=== PATIENT | female | born 1980 | race Caucasian/White ===

== ENCOUNTER 2016-12-22 10:20 | Emergency (ER) | payer OTHER ==
[2016-12-22 10:28] VITALS: BP 117/73; BMI 31.6
--- NOTE | 2016-12-22 10:46 | DR.GENAD ---
HPI - PCP Primary Care Physician: KENYATTA HUNG - HPI Comment HPI Comment: WOKE UP 04: O0 AM TO GET READY FOR WORK, SHE PASSED OUT. AT 05:30 AM SHE WOKE UP NEXT TO HER BED. SHE HAD HEADACHE ALL LAST NIGHT WITH LT ARM PAIN WHICH IS WORSE NOW. DENIES CHEST PAIN. - Complaint/Symptoms Chief Complaint Doctors Comments: SYNCOPAL EPISODE, DIZZINESS. WEAK Chief Complaint:: patient stated she waoke up at 4 to got to work and she passed out by her bed and woke up at 530. she stated she has had a bad headache all night and her chest and arm has been hurting since last night. - Nurses notes reviewed Nurses Notes Review: Yes - Source History Provided: Patient - Mode of Arrival Mode of Arrival: Ambulatory - Timing Onset of Chief Complaint: 12/21/16 Came on: Suddenly - Duration Duration: Since Onset Duration: Hours - Severity Severity: Moderate PMH - PMH Past Medical History: Yes Past Medical History: Migraines Past Surgical History: Yes Surgical History: Cholecystectomy, Hysterectomy - Family History History of Family Medical Conditions: Yes Family Medical History: Diabetes Mellitus, Cancer - Social History Does patient currently use any type of tobacco product: No Have you used tobacco products in the last 12 months: No Type of Tobacco Use: None Does any household member use tobacco: Yes Alcohol Use: None Do you use any recreational Drugs:: No Lives With: Family Lives Where: Home - infectious screening In the last 2 months have you had wt loss of >10#?: NO Have you had fever, night sweats or hemotysis?: No Have you traveled outside the country in the last 6 months?: No Isolation: Standard ROS - Review of Systems Constitutional: No Symptoms Reported Eyes: No Symptoms Reported ENTM: No Symptoms Reported Respiratoy: No Symptoms Reported Cardiovascular: Syncope Gastrointestinal/Abdominal: No Symptoms Reported Genitourinary: No Symptoms Reported Neurological: No Symptoms Reported Musculoskeletal: No Symptoms Reported Integumentary: No Symptoms Reported Hematologic/Lymphatic: No Symptoms Reported All Other Systems: Reviewed and Negative PE - Vital Signs Vitals: Temperature 98.7 F Pulse Rate 94 Respiratory Rate 16 Blood Pressure [Left Arm] 110/64 Blood Pressure [Right Arm] 127/83 Blood Pressure 117/73 O2 Sat by Pulse Oximetry 100 - General Limitations: No Limitations General Appearance: Alert, In No Apparent Distress - Head Head Exam: Normal Inspection - Eyes Eye exam: Normal Appearance - ENT ENT Exam: Normal External Ear Exam External Ear Exam: Normal External Inspection TM/Canal Exam: Bilateral Normal Nose Exam: Normal Nose Exam Mouth Exam: Normal Inspection Throat Exam: Normal Inspection - Neck Neck Exam: Normal Inspection - Chest Chest Inspection: Symmetric Chest Wall Rise - Respiratory Respiratory Exam: Normal Lung Sounds Bilat Respiratory Exam: Bilateral Clear to Auscultation - Cardiovascular Cardiovascular Exam: Regular Rate, Normal Rhythm - Abdominal Exam Abdominal Exam: Normal Bowel Sounds - Extremities Extremities Exam: Normal Inspection - Back Back Exam: Normal Inspection - Neurologic Neurological Exam: Alert, Oriented X3, CN II-XII Intact, Normal Gait, Reflexes Normal. negative: Motor Sensory Deficit - Psychiatric Psychiatric Exam: Anxious - Skin Skin Exam: Normal Color MDM - Differential Diagnosis Differential Diagnosis: SYNCOPE, VERTIGO, CEREBRAL MASS, CVA, DIZZINESS Course - Treatment Treatment: SEE ORDERS - Education/Counseling Education/Counseling: Patient, Education Educated On: Diagnosis, Needs for Follow Up ROR - Labs Reviewed Laboratory Results Reviewed?: Yes Result Diagrams: 12/22/16 10:56 12/22/16 10:56 Laboratory: WBC 3.4 X10^3/uL (3.6-10.0) L 12/22/16 10:56 RBC 3.65 X10^6/uL (3.5-5.4) 12/22/16 10:56 Hgb 10.6 g/dL (12.0-16.0) L 12/22/16 10:56 Hct 31.6 % (36.0-47.0) L 12/22/16 10:56 MCV 86.6 fL (80.0-100.0) 12/22/16 10:56 MCH 29.1 pg (27.0-34.0) 12/22/16 10:56 MCHC 33.6 g/dL (33.0-35.0) 12/22/16 10:56 RDW 13.2 % (11.6-16.5) 12/22/16 10:56 Plt Count 185 X10^3/uL (150.0-450.0) 12/22/16 10:56 MPV 7.7 fL (7.4-11.0) 12/22/16 10:56 Neut % 65.6 % (42.0-75.0) 12/22/16 10:56 Lymph % 20.9 % (21.0-51.0) L 12/22/16 10:56 [place] % 9.3 % (0.0-13.0) 12/22/16 10:56 Eos % 3.3 % (0.9-2.9) H 12/22/16 10:56 Baso % 0.9 % (0.2-1.0) 12/22/16 10:56 Neut # 2.2 x10^3/uL (2.2-4.8) 12/22/16 10:56 Lymph # 0.7 X10^3/uL (1.3-2.9) L 12/22/16 10:56 [place] # 0.3 x10^3/uL (0.3-0.8) 12/22/16 10:56 Eos # 0.1 x10^3/uL (0.0-0.2) 12/22/16 10:56 Baso # 0.0 X10^3/uL (0.0-0.1) 12/22/16 10:56 Absolute Nucleated RBC 0.0 /100WBC 12/22/16 10:56 Sodium 144 mmol/L (136-145) 12/22/16 10:56 Corrected Sodium TNP 12/22/16 10:56 Potassium 3.5 mmol/L (3.5-5.1) 12/22/16 10:56 Chloride 108 mmol/L (98-107) H 12/22/16 10:56 Carbon Dioxide 26.9 mmol/L (21-32) 12/22/16 10:56 BUN 25 mg/dL (7-18) H 12/22/16 10:56 Creatinine 0.93 mg/dL (0.55-1.02) 12/22/16 10:56 Est GFR (MDRD) Af Amer > 60 (>60) 12/22/16 10:56 Est GFR (MDRD) Non-Af > 60 (>60) 12/22/16 10:56 Glucose 69 mg/dL (65-99) 12/22/16 10:56 Calcium 8.8 mg/dL (8.5-10.1) 12/22/16 10:56 Corrected Calcium TNP 12/22/16 10:56 Total Bilirubin 0.40 mg/dL (0.2-1.0) 12/22/16 10:56 AST 16 Units/L (15-37) 12/22/16 10:56 ALT 23 Units/L (12-78) 12/22/16 10:56 Alkaline Phosphatase 89 Units/L (46-116) 12/22/16 10:56 Creatine Kinase 50 Units/L (26-192) 12/22/16 10:56 CK-MB (CK-2) < 1.0 ng/mL (0-4.0) 12/22/16 10:56 CK/CKMB % Calc 2.0 % (<4) 12/22/16 10:56 Troponin I < 0.02 ng/mL (0-1.5) 12/22/16 10:56 Total Protein 7.3 g/dL (6.4-8.2) 12/22/16 10:56 Albumin 3.8 g/dL (3.4-5.0) 12/22/16 10:56 Globulin 3.5 g/dL (2.5-4.5) 12/22/16 10:56 Albumin/Globulin Ratio 1.1 Ratio (1.1-2.1) 12/22/16 10:56 Specimen Type Clean catch urine 12/22/16 12:11 Urine Color Yellow (YELLOW) 12/22/16 12:11 Urine Appearance Clear (CLEAR) 12/22/16 12:11 Urine pH 6.0 (5.0 - 8.0) 12/22/16 12:11 Ur Specific [place] 1.015 (1.000-1.030) 12/22/16 12:11 Urine Protein Negative (NEGATIVE) 12/22/16 12:11 Urine Glucose (UA) Negative (NEGATIVE) 12/22/16 12:11 Urine Ketones Negative (NEGATIVE) 12/22/16 12:11 Urine Occult Blood 1+ (NEGATIVE) 12/22/16 12:11 Urine Nitrite Negative (NEGATIVE) 12/22/16 12:11 Urine Bilirubin Negative (NEGATIVE) 12/22/16 12:11 Urine Urobilinogen Normal (NORMAL) 12/22/16 12:11 Ur Leukocyte Esterase 2+ (NEGATIVE) 12/22/16 12:11 Urine RBC Rare /HPF (NEGATIVE) 12/22/16 12:11 Urine WBC 0 - 3 /HPF (NEGATIVE) 12/22/16 12:11 Ur Squamous Epith Cells Moderate /HPF (NEGATIVE) 12/22/16 12:11 Amorphous Sediment Trace /HPF (NEGATIVE) 12/22/16 12:11 Urine Bacteria Trace /HPF (NEGATIVE) 12/22/16 12:11 Ur Culture Indicated? No/not indicated 12/22/16 12:11 Urine Opiates Screen Negative (NEG=<300) 12/22/16 12:11 Urine Methadone Screen Negative (NEG=<300) 12/22/16 12:11 Ur Barbiturates Screen Negative (NEG=<200) 12/22/16 12:11 Ur Phencyclidine Scrn Negative (NEG=<25) 12/22/16 12:11 Ur Amphetamines Screen Negative (NEG=<1000) 12/22/16 12:11 U Benzodiazepines Scrn Negative (NEG=<200) 12/22/16 12:11 Urine Cocaine Screen Negative (NEG=<300) 12/22/16 12:11 U Marijuana (THC) Screen Negative (NEG=<50) 12/22/16 12:11 - XRAY XRAY Interpreted by: Radiologist XRAY Findings: REPORT DISCUSS WITH PATIENT. - EKG [place]: Normal Rhythm: NSR (EKG NOTED) - Diagnosis Discharge Problem: Dizziness Syncope Qualifiers: Syncope type: unspecified Qualified Code(s): R55 - Syncope and collapse - Discharge Plan Disposition: 01 HOME, SELF-CARE Condition: Stable - Follow ups/Referrals Follow ups/Referrals: ANTHONY HUNG [Primary Care Provider] - 3 days - Instructions Instructions: Syncope, [id number], Dizziness, [id number] Additional Instructions: RETURN TO ED IF WORSE.
[2016-12-22 11:17] LABS: BASOPHILS % (AUTO) 0.9 % (0.2-1.0); EOSINOPHILS # (AUTO) 0.1 x10^3/uL (0.0-0.2); EOSINOPHILS % (AUTO) 3.3 % (0.9-2.9); HEMATOCRIT 31.6 % (36.0-47.0); HEMOGLOBIN 10.6 g/dL (12.0-16.0); LYMPHOCYTES # (AUTO) 0.7 X10^3/uL (1.3-2.9); LYMPHOCYTES % (AUTO) 20.9 % (21.0-51.0); MEAN CORPUSCULAR HEMOGLOBIN 29.1 pg (27.0-34.0); MEAN CORPUSCULAR HGB CONC 33.6 g/dL (33.0-35.0); MEAN CORPUSCULAR VOLUME 86.6 fL (80.0-100.0); MEAN PLATELET VOLUME 7.7 fL (7.4-11.0); MONOCYTES # (AUTO) 0.3 x10^3/uL (0.3-0.8); MONOCYTES % (AUTO) 9.3 % (0.0-13.0); NEUTROPHILS # (AUTO) 2.2 x10^3/uL (2.2-4.8); NEUTROPHILS % (AUTO) 65.6 % (42.0-75.0); PLATELET COUNT 185 X10^3/uL (150.0-450.0); RED BLOOD COUNT 3.65 X10^6/uL (3.5-5.4); RED CELL DISTRIBUTION WIDTH 13.2 % (11.6-16.5); WHITE BLOOD COUNT 3.4 X10^3/uL (3.6-10.0)
[2016-12-22 11:32] LABS: BLOOD UREA NITROGEN 25 mg/dL (7-18); CALCIUM 8.8 mg/dL (8.5-10.1); CARBON DIOXIDE 26.9 mmol/L (21-32); CHLORIDE 108 mmol/L (98-107); CREATININE 0.93 mg/dL (0.55-1.02); GLUCOSE 69 mg/dL (65-99); SODIUM 144 mmol/L (136-145); TROPONIN I < 0.02 ng/mL (0-1.5); eGFR BLACK RACES > 60 (>60); eGFR NON BLACK RACES > 60 (>60)
[2016-12-22 11:46] LABS: ALANINE AMINOTRANSFERASE 23 Units/L (12-78); ALBUMIN 3.8 g/dL (3.4-5.0); ALKALINE PHOSPHATASE 89 Units/L (46-116); ASPARTATE AMINO TRANSFERASE 16 Units/L (15-37); CREATINE KINASE 50 Units/L (26-192); CREATINE KINASE MB < 1.0 ng/mL (0-4.0); TOTAL PROTEIN 7.3 g/dL (6.4-8.2)
--- NOTE | 2016-12-22 11:46 | CT ---
STUDY: CT HEAD WITHOUT CONTRAST HISTORY: Passed out. History of migraines. TECHNIQUE: Multiple axial images of the head were obtained from the skull base to the vertex withou t administration of IV contrast. Automated exposure control (AEC) was utilized to adjust the MA and /or kV. COMPARISON: None. FINDINGS: The sulci, cisterns and ventricles are age appropriate. There is no evidence of acute ter ritorial infarction, hemorrhage, mass, mass effect, or midline shift. There are no abnormal intra-ax ial or extra-axial fluid collections. There is no evidence of acute osseous abnormality or significant soft tissue swelling. Visualized pa ranasal sinuses and mastoid air cells are predominately clear. IMPRESSION: 1. No evidence of acute intracranial abnormality. Reported By:
[2016-12-22 12:24] LABS: BILIRUBIN,URINE NEGATIVE (NEGATIVE); BLOOD/HEMOGLOBIN,URINE 1+ (NEGATIVE); GLUCOSE, URINE NEGATIVE (NEGATIVE); KETONES,URINE NEGATIVE (NEGATIVE); LEUKOCYTE ESTERASE ,URINE 2+ (NEGATIVE); NITRITES,URINE NEGATIVE (NEGATIVE); PROTEIN,URINE NEGATIVE (NEGATIVE); UROBILINOGEN,URINE NORMAL (NORMAL)
[2016-12-22 12:59] LABS: APPEARANCE,URINE CLEAR (CLEAR); BACTERIA,URINE TRACE /HPF (NEGATIVE); COLOR,URINE YELLOW (YELLOW); RBC,URINE RARE /HPF (NEGATIVE); SQUAMOUS EPITHELIAL CELL,UR MODERATE /HPF (NEGATIVE)
[2016-12-22 13:00] LABS: AMORPHOUS SEDIMENT,UR TRACE /HPF (NEGATIVE)
== END 2016-12-22 13:31 | disposition home or self-care (01) ==
LOC: ER 10:32
DX: R42 Dizziness and giddiness (principal); R55 Syncope and collapse
CPT/HCPCS: 36415; 70450; 80053; 80307; 81001; 82550; 82553; 84484; 85025; 93005; 93010; 99283; G0434